=== PATIENT | male | born 1980 | race Caucasian/White ===

== ENCOUNTER 2022-01-22 00:48 | Emergency (ER) | payer SELFPAY ==
[~2022-01-22] VITALS: Ht 175.3 cm; Wt 89.8 kg
[2022-01-22 02:01] VITALS: BP 136/91
--- NOTE | 2022-01-22 02:05 | NUR ---
BIBFRIEND C/O DOG BITE ON R LEG. PT A/OX4. TOLERATING R/A WELL WITH NO SOB; RESP EVEN AND NON LABORED.
[2022-01-22] MEDS ORDERED: AMOX-430 PO (02:10)
[2022-01-22] MEDS ORDERED: TDAP [DIPH/PERTUSSIS/TET] 0.5 ML VIAL IM ONE ×2 (02:12→02:30)
[2022-01-22] MEDS ORDERED: HYDROCODONE/APAP 5/325MG TABLET ONE (02:12)
[2022-01-22] MEDS ORDERED: AMOX/CLAVULANATE 875 MG TABLET ONE (02:12)
--- NOTE | 2022-01-22 02:22 | NUR ---
EMT AT PT'S BEDSIDE FOR WOUND CARE TO LEFT CALF Addendum: 01/22/22 at 0223 by MICAELA EMT AT PT'S BEDSIDE FOR WOUND CARE TO RIGHT CALF
--- NOTE | 2022-01-22 02:24 | NUR ---
PT REFUSED SUTURE & VERBALIZED UNDERSTANDING. DR. ROLDAN AWARE.
[2022-01-22] MEDS ORDERED: HYDROCODONE/APAP 5/325MG TABLET PO ONE (02:30)
[2022-01-22] MEDS ORDERED: AMOX/CLAVULANATE 875 MG TABLET PO ONE (02:30)
--- NOTE | 2022-01-22 02:30 | NUR ---
Patient discharged to home in stable condition. RX Written and verbal after care instructions given. Patient verbalizes understanding of instruction. pt ambulatory with a steady gait
== END 2022-01-22 02:30 | disposition home or self-care (01) ==
LOC: ER 00:51
DX: S81.811A Laceration without foreign body, right lower leg, initial encounter (principal); W54.0XXA Bitten by dog, initial encounter; Y93.89 Activity, other specified; Y92.89 Other specified places as the place of occurrence of the external cause; Y99.8 Other external cause status
CPT/HCPCS: 99283; 90471; 90715; A6403